=== PATIENT | female | born 1975 | race Caucasian/White ===

== ENCOUNTER → 2023-10-07 08:57 | Outpatient (REF) | payer BC, SELFPAY | LOC: HWRAD 08:57 | PROVIDERS: ATTENDING PHYSICIAN Internal Medicine Gastroenterology; FAMILY PHYSICIAN Family Medicine | DX: R10.32 Left lower quadrant pain (principal); R10.31 Right lower quadrant pain | CPT/HCPCS: 74177; Q9967 ==

== ENCOUNTER → 2023-10-28 06:33 | Day surgery (SDC) | payer BC, SELFPAY | LOC: GI 06:33 | PROVIDERS: ATTENDING PHYSICIAN Internal Medicine Gastroenterology; FAMILY PHYSICIAN Family Medicine | DX: Z12.11 Encounter for screening for malignant neoplasm of colon (principal); K57.30 Diverticulosis of large intestine without perforation or abscess without bleeding; K63.5 Polyp of colon; R12 Heartburn; K31.7 Polyp of stomach and duodenum | CPT/HCPCS: 45385; 43239; 88305 ==

== ENCOUNTER → 2024-04-20 09:39 | Outpatient (REF) | payer BC, SELFPAY | LOC: HWWDC 09:39 | PROVIDERS: ATTENDING PHYSICIAN Nurse Practitioner Adult Health; FAMILY PHYSICIAN Family Medicine | DX: N93.9 Abnormal uterine and vaginal bleeding, unspecified (principal); Z12.31 Encounter for screening mammogram for malignant neoplasm of breast | CPT/HCPCS: 76830; 76856; 77063; 77067 ==